=== PATIENT | male | born 1970 | race Caucasian/White ===

== ENCOUNTER 2023-02-21 00:38 | Day surgery (SDC) | payer OTHER, SELFPAY ==
[2023-02-10 15:59] VITALS: BMI 30.9
[2023-02-21 07:54] VITALS: BMI 31.4
[2023-02-21 07:55] VITALS: BP 138/100; PULSE 110; RESP 18; TEMP 36.2; O2SAT 98
[2023-02-21] MEDS: LACTATED RINGERS 1,000 ML 150 ML IV CONT (08:11)
--- NOTE | 2023-02-21 08:15 | P.PNAN_ITS ---
Anes - Initial Pre Proc Eval Procedure: Operation Date: 02/21/23 09:00 Proposed Procedures p Screening Colonoscopy - Brian Dumont MD Date/Time: 02/21/23 08:15 Surgeon: Brian Dumont MD Pre Op Diagnosis: neoplasm screening Patient Data Age: 53 Gender: M Height: 1.78 m Weight: 99.5 kg Last Vital Signs Temp 36.2 C L 02/21/23 07:55 Pulse 110 H 02/21/23 07:55 Resp 18 02/21/23 07:55 BP 138/100 H 02/21/23 07:55 Pulse Ox 98 02/21/23 07:55 O2 Del Method Room Air 02/21/23 07:55 Allergies Allergy/AdvReac Type Severity Reaction Status Date / Time No Known Allergies Allergy Verified 02/21/23 07:52 Home Medications Medication Instructions Recorded Confirmed Type losartan 100 mg tablet 100 mg PO DAILY #90 tabs 11/01/19 02/21/23 Rx rosuvastatin 40 mg tablet 40 mg PO QHS #90 tabs 11/12/22 02/21/23 Rx Fish Oil 1 tab-cap PO DAILY 02/10/23 02/21/23 History Patient hx anesthesia problems: none Family hx anesthesia problems: none Results Review: All pre-operative results and documents have been reviewed as part of the pre- operative evaluation. 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 Pharyngoesophageal dysphagia Prostate cancer screening Family History Family History Father Family history of alcoholism Family history of hearing loss Grandparent Cerebrovascular accident Mother Family history of lung cancer Social History Social History Smoking status: Never smoker Alcohol intake: current Alcohol use details: rarely Substance use: never Substance use type: does not use Lack of Transportation: No Lack of Food: Never True Current Housing: I Have Housing Concerned About Future Housing: No Difficulty Paying Gas/Electric Bills: No Difficulty Paying for Meds: No Currently Unemployed: No Education: Bachelor's Degree Difficulty w/ Childcare or Family Care: No Living arrangements: with family Spiritual care concerns: No Anes - Eval Final PreProcedure Day of Procedure 02/21/23 08:15 Patient weight: obese Heart: regular rate and rhythm Lungs: clear to auscultation and normal air movement Airway: Mallampati scale class II Neurological: alert and oriented Last oral intake: >/= 8 hours ASA classification: III Emergent: no Anesthetic plan: proceed Anesthesia type and monitoring: general GIVS Results Review: All pre-operative results and documents have been reviewed as part of the pre- operative evaluation. Informed Consent: The patient's anesthetic plan and its attendant risks and benefits were discussed with the patient/family/POA. Questions were solicited and answers provided to the satisfaction of the patient/family/POA.
--- NOTE | 2023-02-21 08:37 | PM.HPGS ---
History of Present Illness History of Present Illness Consent: Risks, benefits, and alternatives have been discussed and questions answered. Patient agrees to proceed with procedure. Chief complaint: neoplasm screening Narrative: Gautam Pang is a 53 year old male here for first screening colonoscopy Review of Systems Constitutional: Constitutional: Denies headache(s) and Denies weakness Eyes: Eyes: Denies blurry vision ENT: Reports Normal hearing present, Denies headache(s) and Denies neck pain Cardiovascular: Cardiovascular: Denies chest pain and Denies dyspnea Respiratory: Respiratory: Denies dyspnea Gastrointestinal: Gastrointestinal: Reports no additional gastrointestinal complaints Genitourinary: Genitourinary: Denies dysuria Musculoskeletal: Musculoskeletal: Denies neck pain Integumentary/Breasts: Skin/Breast: Denies dry skin Neurologic: Reports Normal hearing present, Denies headache(s) and Denies weakness Psychiatric: Psychiatric: Denies anxiety Endocrine: Endocrine: Denies change in body appearance Hematologic/Lymphatic: Hematologic/Lymphatic: Denies easy bleeding Allergic/Immunologic: Allergic/Immunologic: Denies urticaria PMF Past Medical History Medical History (Updated 02/21/23 @ 08:16 by Harsha Napoles MD) Benign essential hypertension BMI 31.0-31.9,adult BMI 32.0-32.9,adult Elevated blood pressure reading without diagnosis of hypertension Encounter for general adult medical examination without abnormal findings Encounter to establish care with new doctor Mixed hyperlipidemia Obesity On fdc drug therapy Pharyngoesophageal dysphagia Prostate cancer screening Family History Family History Father Family history of alcoholism Family history of hearing loss Grandparent Cerebrovascular accident Mother Family history of lung cancer Social History Social History Smoking status: Never smoker Alcohol intake: current Alcohol use details: rarely Substance use: never Substance use type: does not use Lack of Transportation: No Lack of Food: Never True Current Housing: I Have Housing Concerned About Future Housing: No Difficulty Paying Gas/Electric Bills: No Difficulty Paying for Meds: No Currently Unemployed: No Education: Bachelor's Degree Difficulty w/ Childcare or Family Care: No Living arrangements: with family Spiritual care concerns: No Meds Home Medications and Allergies Home Medications Medication Instructions Recorded Confirmed Type losartan 100 mg tablet 100 mg PO DAILY #90 tabs 11/01/19 02/21/23 Rx rosuvastatin 40 mg tablet 40 mg PO QHS #90 tabs 11/12/22 02/21/23 Rx Fish Oil 1 tab-cap PO DAILY 02/10/23 02/21/23 History Allergies Allergy/AdvReac Type Severity Reaction Status Date / Time No Known Allergies Allergy Verified 02/21/23 07:52 Vital Signs Vital Signs - 24 hr 02/21/23 07:55 Temperature 97.1 F L Pulse Rate 110 H Respiratory Rate 18 Blood Pressure 138/100 H Pulse Oximetry 98 Oxygen Delivery Room Air Exam Const: General: comfortable and no acute distress HENMT: Face/Nose/Sinus: Normal nares present Eyes: General: appearance normal, both eyes and all related structures Neck: Neck: no JVD Resp: Auscultation: clear to auscultation bilaterally Cardio: Rate: regular rate Rhythm: regular rhythm GI: Inspection: non-distended GI Palp: Yes Soft to palpation Skin: General skin exam: normal color Neuro: General: gait normal Speech: normal speech Extrem: General: normal to inspection Psych: Mental Status: mental status grossly normal Assessment and Plan Assessment and plan (1) Screening for colon cancer: Code(s): Z12.11 - Encounter for screening for malignant neoplasm of colon Status: Acute Assessment and Plan: colonoscopy
[2023-02-21 08:52] VITALS: BP 105/74; PULSE 78; RESP 19; O2SAT 97
[2023-02-21 09:02] VITALS: BP 117/88; PULSE 62; RESP 19; O2SAT 100
[2023-02-21 09:12] VITALS: BP 127/81; PULSE 71; RESP 20; O2SAT 100
== END 2023-02-21 09:20 | disposition home or self-care (01) ==
PROVIDERS: PCP Internal Medicine; Visit Provider Internal Medicine Gastroenterology
PROC: 0DJD8ZZ Inspection of Lower Intestinal Tract, Via Natural or Artificial Opening Endoscopic (ICD-10-PCS; CPT 45378; principal; 2023-02-21 09:00)
DX: Z12.11 Encounter for screening for malignant neoplasm of colon (principal); K57.30 Diverticulosis of large intestine without perforation or abscess without bleeding; K64.8 Other hemorrhoids; E78.2 Mixed hyperlipidemia; I10 Essential (primary) hypertension; E66.9 Obesity, unspecified; Z68.31 Body mass index [BMI] 31.0-31.9, adult
CPT/HCPCS: 45378; J2704; J7120

== ENCOUNTER 2023-09-24 15:42 | Outpatient (CLI) | payer OTHER, SELFPAY ==
--- NOTE | ~2023-09-24 | XR_ITS ---
EXAMINATION: XR abdomen/kub 1V DATE: 09/24/2023 16:04 INDICATION: Constipation, unspecified. TECHNIQUE: A supine view of the abdomen on 2 radiographs was obtained. COMPARISON: None. FINDINGS: There are no dilated loops of bowel. There is a small volume of stool in the colon. IMPRESSION: 1. Normal bowel gas pattern. Reviewed, dictated and finalized at location A. CUTTER
== END 2023-09-24 15:43 | disposition home or self-care (01) ==
PROVIDERS: PCP Nurse Practitioner Family; Visit Provider Internal Medicine Gastroenterology
DX: K59.00 Constipation, unspecified (principal)
CPT/HCPCS: 74018

== ENCOUNTER 2024-10-22 18:31 | Emergency (ER) | payer OTHER, SELFPAY ==
--- NOTE | ~2024-10-22 | XR_ITS ---
EXAMINATION: XR chest 2V Exam Date/Time: 10/22/2024 19:29 PACKAGE WRAPPER HISTORY: cp Comparison: None. RESULT: Lines, tubes, and devices: None. Lungs and pleura: Clear. Cardiomediastinal silhouette: Unremarkable. Other: No acute osseous or upper abdominal finding. IMPRESSION: No acute cardiopulmonary process. Reviewed, dictated and finalized at location K. AGE WRAPPER
--- NOTE | 2024-10-22 18:33 | ECG_ITS ---
Test Date: 2024-10-22 18:49:19 Measurements Intervals [place] Rate: 90 P: 18 OR: 175 QRS: 57 QRSD: 94 T: 13 QT: 356 QTc: 436 Interpretive Statements SINUS RHYTHM WITH FREQUENT SUPRAVENTRICULAR PREMATURE COMPLEXES NONSPECIFIC T-WAVE ABNORMALITY ABNORMAL ECG No previous ECG available for comparison Electronically Signed On 10-23-2024 10:41:42 [employer]STATION OPERATOR [employer] by Ajay Dill M.D.
[2024-10-22 18:40] VITALS: BP 187/107; PULSE 82; RESP 20; TEMP 36.8; O2SAT 98
[2024-10-22 19:13] LABS: Basophils Absolute Auto 0.1 K/mm3 (0.0-0.1); Basophils Percent Auto 1.3 % (0.2-1.2); Eosinophils Absolute Auto 0.3 K/mm3 (0-0.3); Eosinophils Percent Auto 4.3 % (0-4.4); Hematocrit 43.5 % (42.0-52.0); Hemoglobin 14.8 g/dL (14.0-18.0); Immature Granulocyte Absolute 0.01 K/mm3 (0.00-0.031); Immature Granulocyte Percent A 0.1 % (0-0.5); Lymphocytes Absolute Auto 2.26 K/mm3 (0.9-3.2); Lymphocytes Percent Auto 29.2 % (18.3-44.2); Mean Corpuscular Hemoglobin 28.8 pg (26-34); Mean Corpuscular Volume 84.8 fl (80-100); Mean Platelet Volume 9.8 fl (7.4-10.4); Monocytes Absolute Auto 0.7 K/mm3 (0.1-0.6); Monocytes Percent Auto 9.3 % (2.6-8.5); Neutrophils Absolute Auto 4.3 K/mm3 (1.3-6.7); Neutrophils Percent Auto 55.8 % (45.5-73.1); Platelet Count Result 228 k/mm3 (150-375); Red Blood Count 5.13 M/mm3 (4.6-6.20); Red Cell Distribution Width 12.7 % (11.5-14.5); White Blood Count 7.7 K/mm3 (4.5-10.0)
[2024-10-22 19:25] LABS: Alanine Aminotransferase 20 U/L (6-50); Albumin Level 4.2 g/dL (3.5-5.1); Alkaline Phosphatase 78 U/L (38-126); Anion Gap 6 mmol/L (4-12); Aspartate Amino Transferase 25 U/L (17-59); Blood Urea Nitrogen 9 mg/dL (9-20); Calcium 8.8 mg/dL (8.4-10.2); Carbon Dioxide 25 mmol/L (22-30); Chloride 107 mmol/L (98-107); Estimated CRCL calculation 109 ml/min; Estimated Glomerular Filt Rate > 60; Glucose 91 mg/dL (65-110); Lipase 91 U/L (23-300); Sodium 138 mmol/L (137-145)
[2024-10-22 19:37] LABS: Troponin I < 0.012 ng/mL (0.000-0.034)
[2024-10-22 23:31] VITALS: O2SAT 98
--- NOTE | 2024-10-22 23:46 | ED.ARRPALP ---
HPI - Arrhythmia/Palpitations General Chief Complaint: Chest Pain Stated Complaint: Fluttering in chest x 24 hours-intermittent Time Seen by Provider: 10/22/24 23:28 History of Present Illness HPI narrative: 54-year-old male with history of hypertension hyperlipidemia presents to the emergency department for palpitations. Patient states he began having palpitations last night while sitting at his friend's house. States they lasted approximately 45 minutes, then spontaneous resolved and he remained asymptomatic the rest of the night. He states throughout the day today he has had intermittent episodes of palpitations for feels like his chest is fluttering. He cannot identify any aggravating or alleviating factors. He denies chest pain or shortness of breath, lightheadedness/dizziness, syncope, lower extremity edema. He has no cardiac history and no hx of arrhythmias. States he drinks 16 oz of coffee daily. Denies drug use, denies smoking. Reports occasional alcohol use but states he did not drink yesterday or today. Patient states he stopped taking his atorvastatin approximately a year ago and his blood pressure medications several months ago because he spoke with his PCP and decided that he wanted to treat his hypertension and hyperlipidemia with diet and exercise. Related Data Home Medications ?Medication ?Instructions ?Recorded ?Confirmed ?Last Taken ?Type Fish Oil 1 tab-cap PO DAILY 02/10/23 07/28/24 Unknown History lutein 25 mg-zeaxanthin 5 mg cap PO DAILY 09/17/23 07/28/24 Unknown History capsule multivitamin 1 tablet PO DAILY 09/17/23 07/28/24 Unknown History Allergies Allergy/AdvReac Type Severity Reaction Status Date / Time No Known Allergies Allergy Verified 07/28/24 08:53 Review of Systems Review of Systems: All systems reviewed & are unremarkable except as noted in HPI and below PMFSH Past Medical History Medical History Constipation Obesity Encounter for general adult medical examination without abnormal findings Elevated blood pressure reading without diagnosis of hypertension Prostate cancer screening Pharyngoesophageal dysphagia On terminal 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 Mixed hyperlipidemia Encounter to establish care with new doctor BMI 32.0-32.9,adult BMI 31.0-31.9,adult Benign essential hypertension Family History Family History Father Family history of alcoholism Family history of hearing loss Grandparent Cerebrovascular accident Mother Family history of lung cancer Social History Social History Smoking status: Never smoker Alcohol intake: current Alcohol use details: rarely Substance use: never Substance use type: does not use Do You Feel Safe in your Home?: Yes Lack of Transportation: No Lack of Food: Never True Current Housing: I Have Housing Concerned About Future Housing: No Difficulty Paying Gas/Electric Bills: No Difficulty Paying for Meds: No Currently Unemployed: No Education: Bachelor's Degree Difficulty w/ Childcare or Family Care: No Living arrangements: with family Occupation/Education: occupation Gender identity (if verbalized by the patient): Male Sexual Orientation (if Verbalized by the Patient): Straight or Heterosexual Spiritual care concerns: No Agree to blood products: Yes Exam Narrative: GENERAL: Well-appearing, well-nourished, and in no acute distress. HEAD: Normocephalic, atraumatic. EYES: EOMI. ENT: Nares clear, no rhinorrhea or epistaxis. Mucous membranes moist. NECK: Supple. CHEST: Clear to auscultation. No respiratory distress. HEART: Regular rate and rhythm. No murmur heard. Normal peripheral pulses. ABDOMEN: Soft, nontender, nondistended, normal active bowel sounds. EXTREMITIES: Normal range of motion. No edema. SKIN: Warm, dry, no rash. NEURO: No focal deficits. Alert and oriented x3 Course Vital Signs Vital signs: Vital Signs Temperature 98.2 F 10/22/24 18:40 Pulse Rate 82 10/22/24 18:40 Respiratory Rate 20 10/22/24 18:40 Blood Pressure 187/107 H 10/22/24 18:40 Pulse Oximetry 98 10/22/24 18:40 Oxygen Delivery Room Air 10/22/24 18:40 Temperature 98.2 F 10/22/24 18:40 Pulse Rate 82 10/22/24 18:40 Respiratory Rate 20 10/22/24 18:40 Blood Pressure 187/107 H 10/22/24 18:40 Pulse Oximetry 98 10/22/24 23:31 Oxygen Delivery Room Air 10/22/24 23:31 MDM - Arrhythmia/Palpitations MDM Narrative Medical decision making narrative: 54-year-old male with history of hypertension and hyperlipidemia presents to emergency department for palpitations intermittently that started yesterday evening. No aggravating or alleviating factors. No chest pain or shortness of breath. No lightheadedness/dizziness or syncope. Triage vitals with hypertension of 187/107, however this is improved to 130s/90s. He is resting comfortably exam bed and is pleasant and conversational. Exam is significant for the above. EKG reviewed which shows sinus rhythm with frequent supraventricular premature complexes with a rate of 90 bpm, normal [place] interval, normal QRS duration, normal QTC, no ischemic changes. Supraventricular premature complexes were also noted on patient's library monitor. At the time of symptomatic palpitation, he did have supraventricular premature complexes noted on the monitor at bedside. The remainder of his workup is reassuring with no leukocytosis, no anemia. Chemistries showed no electrolyte derangements. Magnesium is normal. Chest x-ray shows no acute cardiopulmonary findings. TSH is within normal limits. Patient and were updated workup. Suspect symptomatic palpitations are secondary to premature supraventricular complexes. Will provide cardiology follow-up. Discussed symptomatic control with a beta-amor, patient would like to trial this. Return precautions were also discussed. He and his were agreeable to plan verbalized understanding. Discharged in stable condition. Lab Data 10/22/24 18:53 10/22/24 18:53 Labs: Lab Results 10/22/24 10/23/24 Range/Units 18:53 00:33 WBC 7.7 (4.5-10.0) K/mm3 RBC 5.13 (4.6-6.20) M/mm3 Hgb 14.8 (14.0-18.0) g/dL Hct 43.5 (42.0-52.0) % MCV 84.8 (80-100) fl MCH 28.8 (26-34) pg MCHC 34.0 (32-36) g/dl RDW 12.7 (11.5-14.5) % Plt Count 228 (150-375) k/mm3 MPV 9.8 (7.4-10.4) fl Immature Gran % (Auto) 0.1 (0-0.5) % Neut % (Auto) 55.8 (45.5-73.1) % Lymph % (Auto) 29.2 (18.3-44.2) % [place] % (Auto) 9.3 H (2.6-8.5) % Eos % (Auto) 4.3 (0-4.4) % Baso % (Auto) 1.3 H (0.2-1.2) % Lymph # (Auto) 2.26 (0.9-3.2) K/mm3 [place] # (Auto) 0.7 H (0.1-0.6) K/mm3 Eos # (Auto) 0.3 (0-0.3) K/mm3 Baso # (Auto) 0.1 (0.0-0.1) K/mm3 Abs Immat Gran (auto) 0.01 (0.00-0.031) K/mm3 Absolute Neuts (auto) 4.3 (1.3-6.7) K/mm3 Absolute Nucleated RBC 0.000 (0.0-0.012) K/mm3 Nucleated RBC % 0.0 (0.0-0.2) % PT Pending INR Pending APTT Pending Sodium 138 (137-145) mmol/L Potassium 4.0 (3.4-5.0) mmol/L Chloride 107 (98-107) mmol/L Carbon Dioxide 25 (22-30) mmol/L Anion Gap 6 (4-12) mmol/L BUN 9 (9-20) mg/dL Creatinine 0.81 (0.7-1.3) mg/dL Estim Creat Clear Calc 109 ml/min Estimated GFR > 60 (59 - ) Glucose 91 (65-110) mg/dL Calcium 8.8 (8.4-10.2) mg/dL Magnesium 2.1 (1.6-2.3) mg/dL Total Bilirubin 1.0 (0.2-1.3) mg/dL AST 25 (17-59) U/L ALT 20 (6-50) U/L Alkaline Phosphatase 78 (38-126) U/L Troponin I < 0.012 < 0.012 (0.000-0.034) ng/mL Total Protein 7.0 (6.3-8.2) g/dL Albumin 4.2 (3.5-5.1) g/dL Lipase 91 (23-300) U/L TSH (Reflex) 2.990 (0.465-4.68) uIU/mL Discharge Plan Discharge Clinical Impression: Premature supraventricular beat Patient Disposition: Home, Self-Care Condition: Stable Instructions: Antibiotic Form, Heart Palpitations (DC), Premature Atrial Contractions (ED) Additional Instructions: You were evaluated in the emergency department for palpitations. You were found have premature supraventricular complexes as discussed. Please take the beta-amor as needed for symptomatic palpitations and follow-up with a development technical lead. Please decreased alcohol and caffeine intake. Return to the emergency department if you develop chest pain, lightheadedness, loss of consciousness, shortness of breath or other concerning symptoms. Patient Language: Sammarinese Prescriptions: New metoprolol succinate 25 mg tablet extended release 24 hr 25 mg PO DAILY Qty: 30 0RF metoprolol succinate 25 mg tablet extended release 24 hr 25 mg PO DAILY PRN (Reason: palpitations ) Qty: 30 0RF No Action multivitamin Tablet 1 tablet PO DAILY lutein-zeaxanthin 25-5 mg capsule PO DAILY Fish Oil 1 tab-cap PO DAILY Follow-up/Referrals: Dre Rivas MD [Physician] - Dorita Lopez APRN [Primary Care Provider] -
[2024-10-23 00:18] LABS: Magnesium 2.1 mg/dL (1.6-2.3)
[2024-10-23 00:59] LABS: Troponin I < 0.012 ng/mL (0.000-0.034)
[2024-10-23 02:09] VITALS: BP 131/94; PULSE 72; RESP 16; O2SAT 97
[2024-10-23 05:02] LABS: INR 1.1; Partial Thromboplastin Time 28.4 Seconds (22.3-36.8); Prothrombin Time 14.2 Seconds (11.1-14.7)
== END 2024-10-23 02:11 | disposition home or self-care (01) ==
PROVIDERS: Emergency Medicine; Emergency Provider Physician Assistant; PCP Nurse Practitioner Family
DX: I49.1 Atrial premature depolarization (principal); I10 Essential (primary) hypertension; E78.2 Mixed hyperlipidemia; E66.9 Obesity, unspecified; Z68.30 Body mass index [BMI] 30.0-30.9, adult
CPT/HCPCS: 36415; 71046; 80053; 83690; 83735; 84443; 84484; 85025; 85610; 85730; 93005; 99284